=== PATIENT | female | born 1965 | race Caucasian/White ===

== ENCOUNTER 2019-04-03 01:08 | Day surgery (SDC) | payer BC, SELFPAY ==
[2019-03-29 12:39] VITALS: BMI 28.6
[2019-04-03 10:40] VITALS: BP 134/79; PULSE 86; RESP 16; TEMP 36.7; O2SAT 98
[2019-04-03 10:42] VITALS: BMI 28.1
[2019-04-03] MEDS: LACTATED RINGERS 1,000 ML 150 ML IV CONT (10:50)
--- NOTE | 2019-04-03 10:55 | WPDANESEPPF ---
Anes - Initial Pre Proc Eval Procedure: Operation Date: 04/03/19 11:30 Proposed Procedures p Screening Colonoscopy - Sachin Colbert MD Date/Time: 04/03/19 10:55 Surgeon: Sachin Colbert MD Pre Op Diagnosis: neoplasm screening Patient Data Age: 53 Gender: F Height: 5 ft 5 in Weight: 76.8 kg Last Vital Signs Temp 36.7 C 04/03/19 10:40 Pulse 86 04/03/19 10:40 Resp 16 04/03/19 10:40 BP 134/79 04/03/19 10:40 Pulse Ox 98 04/03/19 10:40 Allergies Allergy/AdvReac Type Severity Reaction Status Date / Time No Known Allergies Allergy Verified 04/03/19 10:38 Home Medications Medication Instructions Recorded Confirmed Type Daily Multivitamin 1 tablet PO DAILY 03/29/19 03/29/19 History Probiotic 1 tablet PO DAILY 03/29/19 03/29/19 History Vitamin D3 1 tablet PO DAILY 03/29/19 03/29/19 History lorazepam 1 mg PO DAILY 03/29/19 03/29/19 History paroxetine HCl 30 mg PO DAILY 03/29/19 03/29/19 History zolpidem 5 mg PO DAILY 03/29/19 03/29/19 History Patient hx anesthesia problems: none Family hx anesthesia problems: none [facility] Past Medical History Medical History Anxiety Smoker Anes - Eval Final PreProcedure Day of Procedure 04/03/19 10:55 Patient weight: overweight Heart: regular rate and rhythm Lungs: clear to auscultation Airway: Mallampati scale class II Neurological: alert and oriented Last oral intake: >/= 8 hours ASA classification: III Emergent: no Anesthetic plan: proceed Anesthesia type and monitoring: general GIVS and standard monitoring Informed Consent: The patient's anesthetic plan and its attendant risks and benefits were discussed with the patient/family/POA. Questions were solicited and answers provided to the satisfaction of the patient/family/POA.
--- NOTE | 2019-04-03 11:06 | P.HP_ITS ---
History of Present Illness History of Present Illness Consent: Risks, benefits, and alternatives have been discussed and questions answered. Patient agrees to proceed with procedure. Chief complaint: neoplasm screening Narrative: Grecia Page is a 53 year old W female referred for colonoscopy secondary family history of colon cancer in both maternal grandparents. Patient states she has a history of colonic polyps. She has had several colonoscopies I performed last 1 in 2013 at which time several hyperplastic polyps were removed. I do not have reports from colonoscopies prior to this time. Patient is asymptomatic. [facility] Past Medical History Medical History Anxiety Fracture of great toe Smoker Surgical History Surgical History (Updated 04/03/19 @ 11:09 by Sachin Colbert MD) History of dilatation and curettage History of tonsillectomy and adenoidectomy Meds Home Medications and Allergies Home Medications Medication Instructions Recorded Confirmed Type Daily Multivitamin 1 tablet PO DAILY 03/29/19 03/29/19 History Probiotic 1 tablet PO DAILY 03/29/19 03/29/19 History Vitamin D3 1 tablet PO DAILY 03/29/19 03/29/19 History lorazepam 1 mg PO DAILY 03/29/19 03/29/19 History paroxetine HCl 30 mg PO DAILY 03/29/19 03/29/19 History zolpidem 5 mg PO DAILY 03/29/19 03/29/19 History Allergies Allergy/AdvReac Type Severity Reaction Status Date / Time No Known Allergies Allergy Verified 04/03/19 10:38 Vital Signs Vital Signs - 24 hr 04/03/19 10:40 Temperature 36.7 C Pulse Rate 86 Respiratory Rate 16 Blood Pressure 134/79 Pulse Oximetry 98 Exam Const: Orientation/consciousness: patient oriented x3 Resp: Auscultation: clear to auscultation bilaterally Cardio: Rate: regular rate Rhythm: regular rhythm Heart sounds: no murmurs GI: GI Palp: Yes Soft to palpation, No Tenderness to palpation present (GI), Yes No hepatosplenomegaly present and No Palpable mass present Auscultation: normal bowel sounds Neuro: General: patient oriented x3 and no focal motor deficits Extrem: General: no pedal edema Assessment and Plan Additional Plan screening colonoscopy secondary to family history of colon cancer in both maternal grandparents
[2019-04-03] MEDS: SIMETHICONE ORAL SUSPENSION 20 MG/0.3 ML 30 ML BOTTLE 0.6 ML IRRIGATION (11:48)
[2019-04-03 11:58] VITALS: BP 106/73; PULSE 76; RESP 24; O2SAT 98
[2019-04-03 12:08] VITALS: BP 108/79; PULSE 76; RESP 19; O2SAT 98
[2019-04-03 12:18] VITALS: BP 119/84; PULSE 72; RESP 17; O2SAT 98
== END 2019-04-03 12:30 | disposition home or self-care (01) ==
PROVIDERS: PCP Emergency Medicine; Visit Provider Internal Medicine Gastroenterology
PROC: 0DJD8ZZ Inspection of Lower Intestinal Tract, Via Natural or Artificial Opening Endoscopic (ICD-10-PCS; CPT 45378; principal; 2019-04-03 11:30)
DX: Z12.11 Encounter for screening for malignant neoplasm of colon (principal); Z86.010 Personal history of colon polyps; K64.8 Other hemorrhoids; K64.4 Residual hemorrhoidal skin tags; Z80.0 Family history of malignant neoplasm of digestive organs; F41.9 Anxiety disorder, unspecified
CPT/HCPCS: 45378; J2704; J7120

== ENCOUNTER → 2019-11-30 12:21 | Outpatient (CLI) | payer BC, SELFPAY ==
--- NOTE | ~2019-11-30 | MM_ITS ---
EXAMINATION: MM screening beni BI w adam HISTORY: Screening mammogram TECHNIQUE: Craniocaudal and mediolateral oblique 3-D tomosynthesis images were obtained and synthetic 2-D images were generated. CAD analysis was submitted and interpreted. COMPARISON: 12/16/2017, 03/02/2016, 08/27/2014 bilateral digital screening mammogram examinations BREAST PARENCHYMAL COMPOSITION: There are scattered areas of fibroglandular density. FINDINGS: Stable mild fibroglandular asymmetry. There is no evidence of suspicious mass, calcificatio n, or architectural distortion to suggest malignancy in either breast. There has been no suspicious i nterval change. IMPRESSION: 1. No mammographic evidence of malignancy. 2. Recommend routine screening mammography in one year. BI-RADS Category 2: Benign finding(s). Reviewed, dictated and finalized at location A.
== END ==
PROVIDERS: PCP Emergency Medicine; Visit Provider Emergency Medicine
DX: Z12.31 Encounter for screening mammogram for malignant neoplasm of breast (principal)
CPT/HCPCS: 77063; 77067

== ENCOUNTER → 2021-01-21 14:42 | Outpatient (CLI) | payer BC, SELFPAY ==
--- NOTE | ~2021-01-21 | MM_ITS ---
EXAMINATION: MM screening [facility] BI w adam HISTORY: Screening mammogram TECHNIQUE: Craniocaudal and mediolateral oblique 3-D tomosynthesis images were obtained and synthetic 2-D images were generated. CAD analysis was submitted and interpreted. COMPARISON: 11/30/2019, 12/16/2017, 03/02/2016 BREAST PARENCHYMAL COMPOSITION: The breasts are heterogeneously dense, which may obscure small masses . FINDINGS: There is no evidence of suspicious mass, calcification, or architectural distortion to sugg est malignancy in either breast. There has been no suspicious interval change. IMPRESSION: 1. No mammographic evidence of malignancy. 2. Recommend routine screening mammography in one year. BI-RADS Category 1: Negative Reviewed, dictated and finalized at location A. 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
== END ==
PROVIDERS: PCP Family Medicine; Visit Provider Family Medicine
DX: Z12.31 Encounter for screening mammogram for malignant neoplasm of breast (principal)
CPT/HCPCS: 77063; 77067

== ENCOUNTER 2021-05-18 14:52 | Emergency (ER) | payer BC, SELFPAY ==
--- NOTE | 2021-05-18 15:05 | ED.URI ---
HPI - URI/Sore Throat General Chief Complaint: Upper Respiratory Infection Stated Complaint: Headache,Chest Congestion,Cough Related Data Home Medications Medication Instructions Recorded Confirmed Daily Multivitamin 1 tablet PO DAILY 03/29/19 03/29/19 Probiotic 1 tablet PO DAILY 03/29/19 03/29/19 Vitamin D3 1 tablet PO DAILY 03/29/19 03/29/19 lorazepam 1 mg PO DAILY 03/29/19 03/29/19 paroxetine HCl 30 mg PO DAILY 03/29/19 03/29/19 zolpidem 5 mg PO DAILY 03/29/19 03/29/19 Allergies Allergy/AdvReac Type Severity Reaction Status Date / Time No Known Allergies Allergy Verified 04/03/19 10:38 PMFSH Past Medical History Medical History Anxiety Fracture of great toe Smoker Surgical History Surgical History History of dilatation and curettage History of tonsillectomy and adenoidectomy Discharge Plan Discharge Prescriptions: No Action paroxetine HCl 30 mg tablet 30 mg PO DAILY RF: 0 zolpidem 5 mg tablet 5 mg PO DAILY RF: 0 lorazepam 1 mg tablet 1 mg PO DAILY RF: 0 Daily Multivitamin 1 tablet PO DAILY RF: 0 Probiotic 1 tablet PO DAILY RF: 0 Vitamin D3 1 tablet PO DAILY RF: 0 Follow-up/Referrals: Desmond,Matthew Post MD [Primary Care Provider] - [facility] Nursing Documentation ED NIHSS nursing documentation: reviewed/agree
[2021-05-18 15:10] VITALS: BP 145/100; PULSE 127; RESP 20; TEMP 36; O2SAT 97
--- NOTE | 2021-05-18 15:12 | PC.NURSE ---
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 Original Note: Pt left without being seen by nurse or provider. Stated she had to get to work at
== END 2021-05-18 15:12 | disposition left against medical advice (07) ==
PROVIDERS: Emergency Provider Nurse Practitioner Family; PCP Family Medicine
DX: Z53.21 Procedure and treatment not carried out due to patient leaving prior to being seen by health care provider (principal)
CPT/HCPCS: 99199

== ENCOUNTER 2023-11-27 11:09 | Outpatient (CLI) | payer OTHER, SELFPAY ==
--- NOTE | ~2023-11-27 | MM_ITS ---
EXAMINATION: MM screening beni BI w adam HISTORY: Screening TECHNIQUE: Craniocaudal and mediolateral oblique 3-D tomosynthesis images were obtained and synthetic 2-D images were generated. CAD analysis was submitted and interpreted. COMPARISON: Comparison to multiple prior studies sequentially, with oldest reviewed study dated 08/27. BREAST PARENCHYMAL COMPOSITION: Not dense: There are scattered areas of fibroglandular density. FINDINGS: There is a possible subtle new mass in the upper outer quadrant of the right breast obscure d by fibroglandular tissue. There is a developing left breast asymmetry in the upper outer quadrant. IMPRESSION: 1. Developing right breast mass in left breast asymmetries. 2. Additional mammographic views and possible breast ultrasound are recommended. BI-RADS Category 0: Incomplete: Needs additional imaging evaluation. Reviewed, dictated and finalized at location B. IMPRESSION: 1. Developing right breast mass in left breast asymmetries. 2. Additional mammographic views and possible breast ultrasound are recommended . BI-RADS Category 0: Incomplete: Needs additional imaging evaluation.
== END 2023-11-27 11:10 | disposition home or self-care (01) ==
LOC: MICIMG 11:10
PROVIDERS: PCP Family Medicine; Visit Provider Family Medicine
DX: Z12.31 Encounter for screening mammogram for malignant neoplasm of breast (principal); R92.8 Other abnormal and inconclusive findings on diagnostic imaging of breast
CPT/HCPCS: 77063; 77067

== ENCOUNTER 2023-12-21 07:43 | Outpatient (CLI) | payer OTHER, SELFPAY ==
--- NOTE | ~2023-12-21 | MM_ITS ---
EXAMINATION: MM diagnostic beni BI w adam HISTORY: Bilateral breast asymmetries TECHNIQUE: Additional 3-D tomosynthesis images of the breasts were performed and synthetic 2-D images were generated. CAD analysis was submitted and interpreted. COMPARISON: 11/27/2023, 01/21/2021, 11/30/2019 BREAST PARENCHYMAL COMPOSITION: There are scattered areas of fibroglandular density. FINDINGS: Areas of asymmetry efface with spot compression. No persistent mass lesion or distortion. N o suspicious microcalcifications. IMPRESSION: No mammographic evidence for malignancy. BI-RADS Category 1: Negative Reviewed, dictated and finalized at location . 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
== END 2023-12-21 07:44 | disposition home or self-care (01) ==
LOC: MICIMG 07:44
PROVIDERS: PCP Family Medicine; Visit Provider Family Medicine
DX: R92.8 Other abnormal and inconclusive findings on diagnostic imaging of breast (principal)
CPT/HCPCS: 77062; 77066; G0279